=== PATIENT | male | born 1980 | race Caucasian/White ===

== ENCOUNTER 2021-04-11 15:35 | Emergency (ER) | payer BC ==
[~2021-04-11] VITALS: Ht 182.9 cm; Wt 79.0 kg
[2021-04-11 16:09] VITALS: BP 148/99
[2021-04-11] MEDS ORDERED: IV NORMAL SALINE 1,000ML 1,000 ML IV ONE (16:45)
[2021-04-11] MEDS ORDERED: MECLIZINE 12.5 MG TABLET. PO ONE (16:45)
[2021-04-11 16:58] LABS: BASO % 1 % (0-3); EOS # 0.1 x10^3/uL (0.0-0.7); EOS % 1 % (0-3); HEMATOCRIT 47.1 % (39.0-53.0); HEMOGLOBIN 16.1 g/dL (13.0-17.5); LYMPH # 1.9 x10^3/uL (1.0-4.8); LYMPH % 25 % (24-48); MEAN CORPUSCULAR HEMOGLOBIN 31 pg (25-35); MEAN CORPUSCULAR HGB CONC 34 g/dL (31-37); MEAN CORPUSCULAR VOLUME 90 fL (79-100); MONO # 0.5 x10^3/uL (0.0-1.1); MONO % 7 % (0-9); NEUT # 5.1 x10^3uL (1.8-7.7); NEUT % 67 % (31-73); PLATELET COUNT 286 x10^3/uL (140-400); RED BLOOD COUNT 5.26 x10^6/uL (4.30-5.70); WHITE BLOOD COUNT 7.6 x10^3/uL (4.0-11.0)
--- NOTE | 2021-04-11 16:58 | RAD ---
EXAM: CT Head without IV contrast CLINICAL HISTORY: Reason: headache, lightheaded, / Spl. Instructions: / History: COMPARISON: None. TECHNIQUE: Routine CT of the head without contrast. PQRS compliance statement - One or more of the following individualized dose reduction techniques wer e utilized for this study: 1. Automated exposure control 2. Adjustment of the mA and/or kV according to patient size 3. Use of iterative reconstruction technique FINDINGS: There is no evidence of hemorrhage, mass or extra-axial fluid collection. Ghosh-white differentiation is maintained with no evidence of edema. There is no mass effect or shift of the intracranial structures. The ventricles, basilar cisterns and cortical sulci are normal in size and configuration for the lalita ents stated age. The cerebellum and brainstem are unremarkable. The calvarium demonstrates no evidence of fracture or focal lesion. There is normal aeration of the visualized paranasal sinuses and mastoid air cells. The visualized portions of the orbits are normal. IMPRESSION: 1. No evidence for acute intracranial process. Electronically signed by: Jimmy Lynn MD (04/11/2021 4:55 PM) RUDI
--- NOTE | 2021-04-11 16:58 | EKG ---
[address] [address] Test Date: 2021-04-11 Test Time: 16:53:35 Pat Name: MITZI MARQUEZ Department: Room: Gender: M Display Designer: : 1980 Requested By: LISSETT WOLF Order Number: [id number] Reading MD: Measurements Intervals [place] Rate: 71 P: 34 OR: 166 QRS: 24 QRSD: 78 T: 28 QT: 384 QTc: 422 Interpretive Statements SINUS RHYTHM NORMAL ECG RI6.02 No previous ECG available for comparison
[2021-04-11 17:02] LABS: CALCIUM 9.1 mg/dL (8.5-10.1); CREATININE 0.9 mg/dL (0.7-1.3); GFR 92.5; POTASSIUM 3.9 mmol/L (3.5-5.1)
[2021-04-11 17:09] LABS: ALBUMIN 4.3 g/dL (3.4-5.0); ALBUMIN/GLOBULIN RATIO 1.1 (1.0-1.7); TOTAL BILIRUBIN 0.5 mg/dL (0.2-1.0); TOTAL PROTEIN 8.1 g/dL (6.4-8.2)
--- NOTE | 2021-04-11 17:11 | PHYS DOC ---
Past History Past Surgical History: No Surgical History (LISSETT WOLF APRN) Alcohol Use: None (LISSETT WOLF APRN) General Adult EDM: Chief Complaint: DIZZY/LIGHT HEADED HPI: HPI: Patient is a 41-year-old male who presents to the emergency department for intermittent lightheadedness that started yesterday. Patient reports that the lightheadedness is worse with position changes. Patient reports that he was on a cruise this weekend. He is also reporting occipital headache and right ear pressure. He denies any dizziness sensations or feeling like the room is spinning. He denies any nausea, vomiting, vision changes, chest pain, shortness of breath, tinnitus, head injuries. (LISSETT WOLF APRN) Review of Systems: Review of Systems: Eyes: See HPI HENT: See HPI Respiratory: See HPI Cardiovascular: See HPI GI: See HPI Neurologic: See HPI (LISSETT WOLF APRN) Current Medications: Current Meds: Current Medications Medications (Trade) Dose Ordered Sig/Nic Start Time Stop Time Status Last Admin Dose Admin Meclizine HCl (Antivert) 25 mg 1X ONCE 04/11/21 16:45 04/11/21 16:46 DC 04/11/21 16:56 25 MG Sodium Chloride 1,000 ml @ 1,000 mls/hr 1X ONCE 04/11/21 16:45 04/11/21 17:44 04/11/21 16:56 1,000 MLS/HR (LISSETT WOLF APRN) Allergies: Allergies: Allergies Coded Allergies Type Severity Reaction Last Updated Verified No Known Drug Allergies 04/11/21 No (LISSETT WOLF APRN) Physical Exam: PE: Constitutional: Well developed, well nourished, no acute distress, non-toxic appearance. [] HENT: Normocephalic, atraumatic, bilateral external ears normal, fluid behind right TM, oropharynx moist, no oral exudates, nose normal. [] Eyes: PERRL, 4 mm pupils bilaterally, no vertical nystagmus, EOMI, conjunctiva normal, no discharge. [] Neck: Normal range of motion, no tenderness, supple, no stridor. [] Cardiovascular:Heart rate regular rhythm, no murmur [] Lungs & Thorax: Bilateral breath sounds clear to auscultation [] Abdomen: Bowel sounds normal, soft, no tenderness, no masses, no pulsatile masses. [] Skin: Warm, dry, no erythema, no rash. [] Back: Normal range of motion Extremities: No tenderness, no cyanosis, no clubbing, ROM intact, no edema. [] Neurologic: Alert and oriented X 3, normal motor function, normal sensory function, no focal deficits noted. [] Psychologic: Affect normal, judgement normal, mood normal. [] (LISSETT WOLF APRN) Current Patient Data: Labs: Laboratory Tests Test 04/11/21 16:20 White Blood Count 7.6 x10^3/uL Red Blood Count 5.26 x10^6/uL Hemoglobin 16.1 g/dL Hematocrit 47.1 % Mean Corpuscular Volume 90 fL Mean Corpuscular Hemoglobin 31 pg Mean Corpuscular Hemoglobin Concent 34 g/dL Red Cell Distribution Width 13.0 % Platelet Count 286 x10^3/uL Neutrophils (%) (Auto) 67 % Lymphocytes (%) (Auto) 25 % Monocytes (%) (Auto) 7 % Eosinophils (%) (Auto) 1 % Basophils (%) (Auto) 1 % Neutrophils # (Auto) 5.1 x10^3uL Lymphocytes # (Auto) 1.9 x10^3/uL Monocytes # (Auto) 0.5 x10^3/uL Eosinophils # (Auto) 0.1 x10^3/uL Basophils # (Auto) 0.0 x10^3/uL Sodium Level 144 mmol/L Potassium Level 3.9 mmol/L Chloride Level 106 mmol/L Carbon Dioxide Level 30 mmol/L Anion Gap 8 Blood Urea Nitrogen 15 mg/dL Creatinine 0.9 mg/dL Estimated GFR (Cockcroft-Gault) 92.5 BUN/Creatinine Ratio 17 Glucose Level 108 mg/dL Calcium Level 9.1 mg/dL Total Bilirubin 0.5 mg/dL Aspartate Amino Transf (AST/SGOT) 24 U/L Alanine Aminotransferase (ALT/SGPT) 42 U/L Alkaline Phosphatase 88 U/L Troponin I High Sensitivity 11 ng/L Total Protein 8.1 g/dL Albumin 4.3 g/dL Albumin/Globulin Ratio 1.1 Current Medications Medications (Trade) Dose Ordered Sig/Nic Route PRN Reason Start Time Stop Time Status Last Admin Dose Admin Sodium Chloride 1,000 ml @ 1,000 mls/hr 1X ONCE IV 04/11/21 16:45 04/11/21 17:44 04/11/21 16:56 Meclizine HCl (Antivert) 25 mg 1X ONCE PO 04/11/21 16:45 04/11/21 16:46 DC 04/11/21 16:56 Vital Signs: Vital Signs Date Time Temp Pulse Resp B/P (MAP) Pulse Ox O2 Delivery O2 Flow Rate FiO2 04/11/21 16:09 98.2 90 16 148/99 (115) 100 (LISSETT WOLF APRN) EKG: EKG: [] EKG performed by ER staff at 3 shows sinus rhythm with a rate of 71, QTc 422, no STEMI read by Dr. Sharma at 1654 (LISSETT WOLF APRN) Radiology/Procedures: Radiology/Procedures: []PROCEDURE: CT HEAD WO CONTRAST EXAM: CT Head without IV contrast CLINICAL HISTORY: Reason: headache, lightheaded, / Spl. Instructions: / History: COMPARISON: None. TECHNIQUE: Routine CT of the head without contrast. PQRS compliance statement - One or more of the following individualized dose reduction techniques were utilized for this study: 1. Automated exposure control 2. Adjustment of the mA and/or kV according to patient size 3. Use of iterative reconstruction technique FINDINGS: There is no evidence of hemorrhage, mass or extra-axial fluid collection. Ghosh-white differentiation is maintained with no evidence of edema. There is no mass effect or shift of the intracranial structures. The ventricles, basilar cisterns and cortical sulci are normal in size and configuration for the patients stated age. The cerebellum and brainstem are unremarkable. The calvarium demonstrates no evidence of fracture or focal lesion. There is normal aeration of the visualized paranasal sinuses and mastoid air cells. The visualized portions of the orbits are normal. IMPRESSION: 1. No evidence for acute intracranial process. Electronically signed by: Jimmy Mcnamara MD (04/11/2021 4:55 PM) [facility] DICTATED AND SIGNED BY: JIMMY MCNAMARA MD DATE: 04/11/211651 CC: LISSETT WOLF APRN; PCP,NO ~MTH0 0 (LISSETT WOLF APRN) Heart Score: C/O Chest Pain: No Risk Factors: Risk Factors: DM, Current or recent (<one month) smoker, HTN, HLP, family history of CAD, obesity. Risk Scores: Score 0 - 3: 2.5% MACE over next 6 weeks - Discharge Home Score 4 - 6: 20.3% MACE over next 6 weeks - Admit for Clinical Observation Score 7 - 10: 72.7% MACE over next 6 weeks - Early Invasive Strategies (LISSETT WOLF APRN) Course & Med Decision Making: Course & Med Decision Making Pertinent Labs and Imaging studies reviewed. (See chart for details) [] Patient presents to the emergency department today for intermittent lighthead edness x1 day. He reports that the lightheadedness is worse with position changes, orthostatic vital signs obtained. Patient had recently traveled on a cruise ship this weekend prior to symptoms starting. Patient does feel pressure behind his right ear and does have some fluid behind his right tympanic membrane. Blood work and EKG obtained. As patient does have a occipital hea dache and lightheadedness and does not have a history of headaches, CT imaging of head performed. Patient treated with IV fluids and meclizine. Patient's work-up in the emergency department today was unremarkable. Is likely that patient is experiencing vertigo symptoms or BPV. Patient will be discharged home with meclizine. I discussed with patient all findings and diagnostic t esting as well as the need to follow-up with PCP for further evaluation and treatment or return to the ER if any new or worsening symptoms. Strict return precautions were also discussed at length. Patient voiced understanding and agreement with the plan. Patient is hemodynamically stable at the time of disposition. (LISSETT WOLF APRN) Dragon Disclaimer: Dragon Disclaimer: This electronic medical record was generated, in whole or in part, using a voice recognition dictation system. (LISSETT WOLF APRN) Attending Co-Sign The patient was seen and interviewed as well as examined at the bedside. The chart was reviewed. The case was discussed. Agree with the plan of care. (SHAUN SHARMA DO) Departure Departure: Impression: Primary Impression: Vertigo Disposition: HOME / SELF CARE / HOMELESS Condition: GOOD Referrals: PCP,NO (PCP) Patient Instructions: Benign Positional Vertigo, Vertigo Additional Instructions: You were seen in the emergency department today for lightheadedness. Your work- up in the ER was unremarkable. It is possible that you are experiencing an inner ear issue causing vertigo symptoms. Please slowly make position changes so you do not pass out and fall. You are being discharged home with a prescription for meclizine, please take this as directed. Increase your fluids and rest. For your headache you can take Tylenol and/or ibuprofen. Follow-up with your primary care provider tomorrow regarding your ER visit. Please return to the emergency department if you develop worsening of your lightheadedness, syncope, intractable nausea or vomiting, severe headache, vision changes, difficulty walking, unilateral weakness. Scripts Meclizine Hcl (MECLIZINE HCL) 25 Mg Tablet 25 MG PO DAILY for vertigo for 10 Days, #10 TAB 0 Refills Prov: LISSETT WOLF APRN 04/11/21 LISSETT WOLF APRN Apr 11, 2021 17:11 SHAUN SHARMA DO Apr 12, 2021 11:55
[2021-04-11] MEDS ORDERED: MECL-75 PO (17:20)
== END 2021-04-11 17:41 | disposition home or self-care (01) ==
LOC: ER 15:35
DX: R42 Dizziness and giddiness (principal); R51.9 Headache, unspecified; H93.8X1 Other specified disorders of right ear
CPT/HCPCS: 36415; 70450; 80053; 84484; 85025; 93005; 96360; 99285; J7030